=== PATIENT | female | born 1980 | race Caucasian/White ===

== ENCOUNTER 2018-05-28 00:07 | Emergency (ER) | payer MEDICAID ==
[~2018-05-28] VITALS: Ht 167.6 cm; Wt 82.7 kg
[2018-05-28 00:13] VITALS: Ht 167.6 cm; Wt 82.7 kg
[2018-05-28 01:30] LABS: BASOPHIL % 0.4 % (0-2); PLATELET COUNT 315 x10^3mcL (130-400)
[2018-05-28 01:32] LABS: RED CELL DISTRIBUTION WIDTH 17.7 % (11.5-14.5)
[2018-05-28 01:43] LABS: CALCIUM 8.8 mg/dL (8.5-10.1); CARBON DIOXIDE 27.9 mmol/L (21-32); CHLORIDE SERUM 103 mmol/L (98-107); CREATININE SERUM 0.7 mg/dL (0.6-1.0); GFR1 > 60 mL/min; GLUCOSE SERUM 96 mg/dL (74-106); POTASSIUM SERUM 3.7 mmol/L (3.5-5.1); SODIUM SERUM 137 mmol/L (136-145)
[2018-05-28 01:50] LABS: ALBUMIN 3.9 g/dL (3.4-5.0); ALKALINE PHOSPHATASE 60 U/L (46-116); ALT/SGPT 18 U/L (14-59); AMYLASE 27 U/L (25-115); AST/SGOT 19 U/L (15-37); BILIRUBIN TOTAL 0.25 mg/dL (0.20-1.00); LIPASE 139 IU/L (73-393); TOTAL PROTEIN, SERUM 7.7 g/dL (6.4-8.2)
[2018-05-28 02:44] VITALS: BP 103/58
== END 2018-05-28 02:44 | disposition home or self-care (01) ==
LOC: ED 00:07
PROVIDERS: Specialist
DX: R10.12 Left upper quadrant pain (principal); R11.0 Nausea
CPT/HCPCS: J1885; J2765; J3490; J7030; Q0092